=== PATIENT | female | born 1960 | race Hispanic/Latino ===

== ENCOUNTER → 2017-03-31 | Emergency (ER) | payer OTHER ==
[~2017-03-31] VITALS: Ht 165.1 cm; Wt 85.7 kg
[~2017-03-31] MED LIST: HUMALOG100 UNIT/2 SUB-Q; LANTUS SOL100 UNIT/1 SUB-Q; LISINOPRIL5 MG PO; RANITIDINE HCL150 MG PO
--- NOTE | 2017-03-31 14:48 | EKG ---
[facility] [address] [facility] [place], [place] [address] Signed Normal sinus rhythm Normal ECG No previous ECGs available Confirmed by MELA CRUZ MD ([id number]) on 03/31/2017 2:47:57 PM Electronically Signed By: MELA CRUZ MD 03/31/17 1448 PATIENT NAME: NATALYA REESE ROBERTS Electrocardiogram DATE OF : 64 PHYSICIAN: MELA CRUZ MD REPORT #: [id number] REPORT IS CONFIDENTIAL AND NOT TO BE RELEASED WITHOUT AUTHORIZATION
== END ==
LOC: ED 10:42
DX: B34.9 Viral infection, unspecified (principal); E11.9 Type 2 diabetes mellitus without complications; F17.200 Nicotine dependence, unspecified, uncomplicated; Z79.4 Long term (current) use of insulin; Z79.899 Other long term (current) drug therapy
CPT/HCPCS: 71020; 84484; 93005; 93010; 99284

== ENCOUNTER 2017-09-05 07:09 | Emergency (ER) | payer OTHER ==
[~2017-09-05] VITALS: Ht 165.1 cm; Wt 86.6 kg
[2017-09-05] MEDS ORDERED: PRAVASTATIN SOD10 MG PO (07:22)
[2017-09-05] MEDS ORDERED: FAMOTIDINE20 MG PO (11:26)
--- NOTE | 2017-09-05 12:10 | EKG ---
[facility] [address] [facility] [place], [place] [address] Signed Normal sinus rhythm Normal ECG When compared with ECG of 31-MAR-2017 10:50, No significant change was found Confirmed by MELA CRUZ MD ([id number] on 09/05/2017 12:09:50 PM Electronically Signed By: MELA CRUZ MD 09/05/17 1210 PATIENT NAME: REESE FAJARDO Electrocardiogram DATE OF : 64 PHYSICIAN: MELA CRUZ MD REPORT #: [id number] REPORT IS CONFIDENTIAL AND NOT TO BE RELEASED WITHOUT AUTHORIZATION
== END 2017-09-05 12:21 | disposition home or self-care (01) ==
LOC: ED 07:09
DX: K29.70 Gastritis, unspecified, without bleeding (principal); E11.9 Type 2 diabetes mellitus without complications; F17.200 Nicotine dependence, unspecified, uncomplicated; Z79.4 Long term (current) use of insulin; Z79.899 Other long term (current) drug therapy
CPT/HCPCS: 76700; 80053; 81001; 83690; 84484; 85025; 87077; 87088; 87186; 93005; 93010; 96361; 96374; 96375; 96376; 99284; J1170; J2405; J7030

== ENCOUNTER 2024-08-12 12:12 | Emergency (ER) | payer MEDICARE, MEDICAID ==
[~2024-08-12] VITALS: Ht 165.1 cm; Wt 60.6 kg
[~2024-08-12 12:12] MED LIST changes: +FAMOTIDINE20 MG PO; +PRAVASTATIN SOD10 MG PO
[2024-08-12] MEDS ORDERED: METOCLOPRAMIDE HCL 10 MG/2 ML SDV IV ONE (13:00)
[2024-08-12 13:12] LABS: BASOPHILS 0.2 % (0-2); EOSINOPHILS 0.6 % (0-6); HEMATOCRIT 31.9 % (35.0-50.0); HEMOGLOBIN 10.6 g/dL (12.0-18.0); LYMPHOCYTES 4.9 % (24-44); MCH 30.2 (27-36); MCHC 33.3 g/dl (30-36); MCV 90.8 fl (81-99); MONOCYTES 9.6 % (0-12); NEUTROPHILS 84.7 % (39-80); PLATELET COUNT 152 K/uL (140-440); RBC 3.52 M/ul (4.3-5.7); RDW 14.3 (10.5-15.0)
[2024-08-12 13:28] LABS: ALBUMIN 3.3 g/dL (3.4-5.0); ALBUMIN/GLOBULIN RATIO 1.14 (1.1-2.4); BILIRUBIN, TOTAL 0.4 mg/dL (0.2-1.0); BUN/CREATININE RATIO 12.13 (6.0-28.6); CREATININE, SERUM 2.06 mg/dL (0.55-1.02); PROTEIN, TOTAL 6.2 g/dL (6.4-8.2)
[2024-08-12] MEDS ORDERED: ONDANSETRON ODT4 MG PO (14:38)
[2024-08-12] MEDS ORDERED: REGLAN10 MG PO (14:38)
[2024-08-12 14:44] VITALS: BP 141/83
== END 2024-08-12 14:40 | disposition home or self-care (01) ==
LOC: ED 12:12
PROVIDERS: Emergency Medicine
DX: R11.2 Nausea with vomiting, unspecified (principal); E11.9 Type 2 diabetes mellitus without complications; F17.200 Nicotine dependence, unspecified, uncomplicated
CPT/HCPCS: 36415; 74176; 80053; 83690; 85025; 96374; 99284-25; J2765